=== PATIENT | female | born 1980 | race Caucasian/White ===

== ENCOUNTER 2017-06-29 15:13 | Emergency (ER) | END 2017-06-29 19:31 | disposition home or self-care (01) ==

== ENCOUNTER 2017-07-02 20:57 | Emergency (ER) | END 2017-07-03 04:07 | disposition home or self-care (01) ==

== ENCOUNTER 2017-11-02 19:36 | Emergency (ER) | END 2017-11-02 22:00 | disposition home or self-care (01) ==